=== PATIENT | female | born 1950 | race Caucasian/White ===

== ENCOUNTER 2018-10-24 10:13 | Outpatient (CLI) | payer MEDICARE ==
[~2018-10-24] VITALS: Ht 162.6 cm; Wt 56.8 kg
[~2018-10-24 10:13] MED LIST: ALDACTONE25 MG PO; EFFER-K 25 MEQ25 MEQ PO; ELIQUIS5 MG PO; HCTZ25 MG PO; HYDROCODON-ACE1 EAC7 PO; LANOXIN250 MCG PO; LASIX80 MG PO; MAG-OX 400 MG400 MG PO; MIDAMOR5 MG PO; NYSTATIN ORAL SU5 ML PO; PLAQUENIL200 MG PO; POTASSIUM20 MEQ/PKT PO; PRILOSEC20 MG PO; SODIUM BICARBO650 MG PO; VITAMIN B-1000 MCG/M IM; ZOFRAN8 MG PO
[2018-10-24 13:15] VITALS: BP 106/66; Ht 162.6 cm; Wt 56.8 kg
--- NOTE | 2018-10-24 14:10 | NUR ---
UNIT PRBC'S COMPLETED.
--- NOTE | 2018-10-24 14:35 | NUR ---
IV DC'D WITH CATHETER INTACT. WRITTEN AND VERBAL DC INST. GIVEN TO PT. VERALIZED UNDERSTANDING.
--- NOTE | 2018-10-24 14:40 | NUR ---
DC'D HOME VIA PRIVATE VEHICLE. STABLE AT TIME OF DC.
== END 2018-10-24 14:40 | disposition home or self-care (01) ==
LOC: D.OPS 10:13
PROVIDERS: ATTEND Family Medicine
DX: D64.9 Anemia, unspecified (principal)

== ENCOUNTER → 2019-05-29 12:38 | Outpatient (CLI) | payer MEDICARE ==
[2018-10-24 13:15] VITALS: BMI 21.5
--- NOTE | ~2019-05-29 | EC ---
PATIENT:MIGUEL CASH DATE OF SERVICE: 05/29/19 SEX: F MEDICAL RECORD: [id number] DATE OF : 54 LOCATION:[facility] AGE OF PATIENT: 68 ADMISSION DATE: 05/29/19 REFERRING PHYSICIAN: INTERPRETING PHYSICIAN: ETHEL BELL MD ECHOCARDIOGRAM REPORT ECHO CHARGES 4 ECHO COMPLETE Date: 05/29/19 CLINICAL DIAGNOSIS: HTN/HYPOTENSION, ASSESS EF AND VALVES HX OF MT/TR/PACEMAKER ECHOCARDIOGRAPHIC MEASUREMENTS (adult normal given) AC root (d.<3.7cm) 3.1 cm LV Septum d (<1.2 cm> 1.2 cm Valve Excursion 1.8 cm LV Septum (systole) 1.3 cm Left Atria (s.<4.0cm> 4.0 cm LVPW d(<1.2cm) 1.4 cm RV (d.<2.3cm) 4.7 cm LVPW (sytole) 1.5 cm LV diastole(<5.6CM) 4.2 cm MV E-F(>70mm/sec) cm LV systole 2.9 cm LVOT Diameter 2.1 cm MV exc.(>10mm) 1.4 cm Est.ejection fraction (50-75%) % DOPPLER: LVIT cm/sec A 22.0 cm/sec E 75.0 cm/sec LA cm/sec RVSP 46 mmHg LVOT 92 cm/sec AOP1/2T m/s Asc. Ao 126 cm/sec RVOT 65 cm/sec RA cm/sec PA 75 cm/sec AV Gradient Peak 6.31 mmHg AV Mean 2.93 mmHg AV Area 2.7 cm MV Gradient Peak 5.84 mmHg MV Mean 2.28 mmHg MV Area cm COMMENTS: Crop Duster Helper: 2 SHERYL PEÑA Chemist Biological: 3 Dr. Cantrell TAPE# PACS Pericardial Effusion N DATE OF SERVICE: Adequate 2D, color flow imaging, spectral Doppler, and M-Mode. Borderline LVH. LV internal dimensions are normal. Wall motion is normal. EF is greater than or equal to 55%. Aortic valve is tricuspid. No evidence of stenosis by Doppler interrogation. Left atrium is normal at 4.0 cm. Mitral valve shows no prolapse. Mild MR. Right-sided chamber is grossly normal. Gsxb-sq-sumrimbv TR. Incidental note is made of pacemaker lead in the RV apex. ECHOCARDIOGRAM REPORT [id number] MIGUEL CASH TRANSINT:[id number] Voice Confirmation ID: [id number] DOCUMENT ID: [id number] ETHEL BELL MD CC: [id number] DICTATION DATE: 05/31/19 1231 EXTRAS CASTING DIRECTOR: 06/01/19 0146 DEP CLI 05/29/19 [place] [id number] [place] [id number]
== END | disposition home or self-care (01) ==
LOC: D.HCCECHO 12:38
PROVIDERS: ATTEND Internal Medicine Interventional Cardiology
DX: I10 Essential (primary) hypertension (principal)

== ENCOUNTER 2019-06-06 05:51 | Inpatient (IN) | payer MEDICARE ==
[~2019-06-06] VITALS: Ht 162.6 cm; Wt 73.0 kg
[2019-06-06] VITALS (35 sets, daily range): BP systolic 75–116; BP diastolic 36–95; BMI 18.9
--- NOTE | ~2019-06-06 | HEMODYNAMI ---
PATIENT:MIGUEL CAHS MEDICAL RECORD: [id number] : 54 LOCATION:[facility] D.2312 LOCATED WITHIN [facility]# [id number] ADMISSION DATE: 06/06/19 Generatedon:06/09/201912:31 Patient name: MIGUEL CASH Patient #: [id number] SSN: [id number] : 1950 Date of study: Page: Of Hemodynamic Procedure Report Patient Data Patient Demographics First Name: MIGUEL Gender: Female Last Name: SHREYA : 1950 Middle Initial: M Age: 68 year(s) Patient #: [id number] Race: Unknown SSN: [id number] Additional ID: [id number] Contact details Address: [address] [place] [address] State: [place] City: [place] Zip code: [address] Past Medical History Allergies Allergen Reaction Date Comments Reported Other allergy 06/09/2019 N Admission Admission Data Admission Date: 06/06/2019 Admission Time: 7:49 Room #: D.2312 [facility] #: [id number] Lab Results Lab Result Date: 06/09/2019 Lab Result Time: 0:00 Biochemistry Name Units Result Min Max BUN mg/dl 47 --(----)-* 7 18 Creatinine mg/dl 2.6 --(----)-* 0.6 1.3 eGFR ml/min 19 *-(----)-- 90 120 NONAFRICAN CBC Name Units Result Min Max Hemoglobin g/dl 12.5 *-(----)-- 13.5 17.5 Procedure Procedure Types Cath Procedure Diagnostic Procedure [facility] Procedure Description Procedure Staff Name Function Rupesh Varma MD Performing Physician Carmen Merritt RT Monitor Anatoly Hogan RN Nurse Gill Yost RT Scrub Hemodynamics Rest Pre Cath Intra NCS Post Cath Procedure Log Time Note 12:04:03 Patient allergic to Other allergyPCN Signature Audit [place] Stage Time Signature Unsigned Intra-Procedure 06/09/2019 Carmen Merritt 12:31:54 PM RT(R) Signatures Performing Physician : Signature : Rupesh Varma MD Date : Time : Monitor : Carmen Merritt Signature : RT Date : Time : Nurse : Anatoly Hogna RN Signature : Date : Time : [place] [address] [place] [address]
--- NOTE | ~2019-06-06 | CN ---
PATIENT NAME:MIGUEL AHUMADA MEDICAL RECORD: [id number] : 54 LOCATION:D.M2 D.2107 ADMIT DATE: 06/06/19 ACCOUNT: [id number] CONSULTING PHYSICIAN: GEOVANY OHARA MD REFERRING PHYSICIAN: TANIA ROBLES MD DATE OF CONSULTATION: 06/06/2019 DIAGNOSES: 1. Non-Q-wave myocardial infarction. 2. Abnormal ECG. 3. Pancreatic cancer. 4. Shortness of breath, dyspnea on exertion. HISTORY OF PRESENT ILLNESS: Mrs. Ahumada presents to the ER with increasing shortness of breath, dyspnea on exertion that has been going on this week. She has had some chest pressure, but the shortness of breath has been her main symptom. The shortness of breath progressed today to the point of her being relatively somnolent, difficult to arouse. Her troponin is positive. She has T-wave inversions throughout the anterolateral leads on her EKG. She has no history of ischemic heart disease. They did an echocardiogram on her Sunday of this week for the shortness of breath. PHYSICAL EXAMINATION: CONSTITUTIONAL/GENERAL APPEARANCE: Well nourished, well developed, appears stated age. Level of distress, comfortable. EYES: Lids and conjunctivae noninjected. No discharge. No pallor. ENT: Lips within normal limit. No cyanosis. No pallor. NECK: Carotid arteries, bilateral normal upstroke. No bruits. No thrills. No jugular venous pressure or distention. CERVICAL LYMPH NODES: Nontender. Nonenlarged. THYROID: Not enlarged. No nodules. CARDIOVASCULAR: Precordial exam, nondisplaced. No heaves or pericardial thrills. Rate and rhythm, regular. Heart sounds, normal S1, normal S2. No S3, no gallop, no rub. Systolic murmur, not heard. Diastolic murmur, not heard. RESPIRATORY: Respiratory effort, unlabored. Normal curvature. No thoracic deformity. No chest wall tenderness. Percussion, resonant. Auscultation, clear. No wheezes, no rales, no rhonchi. ABDOMEN: Soft, nondistended, nontender. No abdominal pain, no vomiting and normal appetite. MUSCULOSKELETAL: No joint tenderness, normal gait, normal tone. SKIN: Warm and dry. OVERALL IMPRESSION: Non-Q-wave myocardial infarction, grossly abnormal ECG, most likely she does have hemodynamically significant coronary artery disease. We have talked to the about her status with the pancreatic cancer and at this point she is a FULL CODE and the pancreatic cancer is in its beginning stages. She is followed by an oncologist at [facility]. Clearly, the cardiac issues outweigh the pancreatic cancer. At this time, we will proceed with coronary angiography. TRANSINT:[id number] Voice Confirmation ID: [id number] DOCUMENT ID: [id number] CONSULT REPORT [id number] MIGUEL AHUMADA JEFFREY MD CC: [id number] DICTATION DATE: 06/06/19905 SPRING FLOOR SERVICE WORKER: 06/06/19 1117 ADM IN [facility] [address] [place] [address]
--- NOTE | ~2019-06-06 | EC ---
PATIENT:MIGUEL CASH DATE OF SERVICE: 06/06/19 SEX: F MEDICAL RECORD: [id number] DATE OF : 54 LOCATION:[place] [address] AGE OF PATIENT: 68 ADMISSION DATE: 06/06/19 REFERRING PHYSICIAN: INTERPRETING PHYSICIAN: GEOVANY VARMA MD ECHOCARDIOGRAM REPORT ECHO CHARGES 5 ECHO LIMITED Date: 06/06/19 CLINICAL DIAGNOSIS: CHF ECHOCARDIOGRAPHIC MEASUREMENTS (adult normal given) AC root (d.<3.7cm) 0 cm LV Septum d (<1.2 cm> 0 cm Valve Excursion 0 cm LV Septum (systole) 0 cm Left Atria (s.<4.0cm> 0 cm LVPW d(<1.2cm) 0 cm RV (d.<2.3cm) 0 cm LVPW (sytole) 0 cm LV diastole(<5.6CM) 0 cm MV E-F(>70mm/sec) 0 cm LV systole 0 cm LVOT Diameter 0 cm MV exc.(>10mm) 0 cm Est.ejection fraction (50-75%) % DOPPLER: LVIT cm/sec A 0 cm/sec E 0 cm/sec LA cm/sec RVSP 30.1 mmHg LVOT 0 cm/sec AOP1/2T m/s Asc. Ao 0 cm/sec RVOT 0 cm/sec RA 0 cm/sec PA 0 cm/sec AV Gradient Peak 0 mmHg AV Mean 0 mmHg AV Area 0 cm MV Gradient Peak 0 mmHg MV Mean 0 mmHg MV Area 0 cm COMMENTS: Central Service Tech: Marissa AMANDA ELSIE Applications Instructor: 1 Dr. Varma TAPE# PACS Pericardial Effusion N DATE OF SERVICE: PROCEDURE: Limited echocardiogram for ejection fraction. FINDINGS: 1. Left ventricular chamber size is within normal limits. Left ventricular systolic function is normal at 55%. 2. Left atrium, right atrium, and right ventricular chamber sizes are mildly dilated. 3. Valvular structures have normal structure and motion. ECHOCARDIOGRAM REPORT [id number] MIGUEL CASH 4. Doppler interrogation reveals moderate to severe tricuspid regurgitation, mild mitral regurgitation, no other valvular insufficiency or stenosis. Pulmonary systolic pressure estimated at 30 mmHg. 5. No evidence of pericardial effusion or left ventricular thrombus. TRANSINT:[id number] Voice Confirmation ID: [id number] DOCUMENT ID: [id number] GEOVANY VARMA MD CC: [id number] DICTATION DATE: 06/06/19 1614 HAND PLATE STACKER: 06/06/192226 ADM IN [facility] [address] [place] [id number]
--- NOTE | ~2019-06-06 | HEMODYNAMI ---
PATIENT:MIGUEL CASH MEDICAL RECORD: [id number] : 54 [id number] ADMISSION DATE: 06/06/19 Generatedon:06/16/20199:15 Patient name: MIGUEL CASH Patient #: [id number] SSN: [id number] : 1950 Date of study: 06/16/2019 Page: Of Hemodynamic Procedure Report Patient Data Patient Demographics Procedure consent was obtained First Name: MIGUEL Gender: Female Last Name: SHREYA : 1950 Middle Initial: M Age: 68 year(s) Patient #: [id number] Race: SSN: [id number] Additional ID: [id number] Contact details Address: [address] [place] [address] State: [place] City: [place] Zip code: [address] Past Medical History Allergies Allergen Reaction Date Comments Reported Other allergy 06/09/2019 N Admission Admission Data Admission Date: 06/06/2019 Admission Time: 7:49 Arrival Date: 06/06/2019 Arrival Time: 7:49 Admit Source: Emergency Insurance Payor: Medicare department [facility] #: [id number] Room #: D2130 Height (in.): 64 BSA: 1.78 (m2) Height (cm.): 162.56 BMI: 27.64 (kg/m2) Weight (lbs.): 161 Weight (kg.): 73.03 Procedure Procedure Types Cath Procedure Diagnostic Procedure LHC LH w/Coronaries Sedation Charges Moderate Sedation up to 15 minutes Procedure Description Procedure Date Procedure Date: 06/16/2019 Procedure Start Time: 9:02 Procedure End Time: 9:10 Procedure Staff Name Function Justice Oliver MD Performing Physician Gill Yost RT Monitor Nafisa Dodd RN Nurse Carmen Merritt RT Scrub Procedure Data Cath Procedure Fluoroscopy Diagnostic fluoroscopy Total fluoroscopy Time: 1.1 time: 1.1 min min Diagnostic fluoroscopy Total fluoroscopy dose: 374 dose: 374 mGy mGy Contrast Material Contrast Material Type Amount (ml) Isovue 300 103 Entry Location Entry Primary Successful Side Size Upsize Upsize Entry Closure Succes sful Closure Location (Fr) 1 (Fr) 2 (Fr) Remarks Device Remarks Femoral Right 5 Fr Exoseal artery Estimated blood loss: 5 ml Diagnostic catheters Device Type Used For End Catheter Placement MULTIPACK JL 4.0 5Fr Left Coronary catheter Angiography MULTIPACK 3DRC 5Fr Right Coronary catheter Angiography MULTIPACK Pigtail 5 Fr LV Angiography catheter Procedure Complications No complications Procedure Medications Medication Administration Route Dosage Oxygen NC 3 l/min Heparin Flush Bag added to field 2 bags (1000units/500ml NS) Lidocaine 2% added to field 20 0.9% NaCl I.V. 50 ml/hr Versed I.V. 1 mg Fentanyl I.V. 50 mcg Versed I.V. 1 mg Fentanyl I.V. 50 mcg Versed I.V. 0.5 mg Hemodynamics Rest BSA: 1.78 (m2) HGB: 12.5 (g/dl) O2 Consumption: Estimated: 161.13 (ml/min) O2 Co nsumption indexed: Estimated:90.52 (ml/min/m) Heart Rate: 63 (bpm) Pressure Samples Time Site Value (mmHg) Purpose Heart Use Rate(bpm) 9:07 LV 131/26,31 Snapshot 65 Gradients Valve Time Site Site Mean SEP/DFP Peak To Heart Use 1 2 (mmHg) (sec/min) Peak Rate (mmHg) (bpm) Aortic 9:07 LV AO 63 Snapshots Pre Cath Intra NCS Post Cath Vital Signs Time Heart Resp SPO2 etCO2 NIBP (mmHg) Rhythm Pain Sedation Rate (ipm) (%) (mmHg) Status Level (bpm) 8:34:38 63 22 97 29.4 154/91(116) NSR 0 (11) 10(A) , No pain 8:38:48 60 19 100 23.4 155/97(113) NSR 0 (11) 10(A) , No pain 8:43:02 60 16 100 27.9 151/83(105) NSR 0 (11) 10(A) , No pain 8:47:16 60 13 98 30.2 134/81(104) NSR 0 (11) 10(A) , No pain 8:51:26 60 12 97 30.2 122/76(95) NSR 0 (11) 10(A) , No pain 8:55:30 60 13 98 30.2 134/78(102) NSR 0 (11) 10(A) , No pain 8:59:37 61 13 98 31.7 125/81(101) NSR 0 (11) 9(A) , No pain 9:03:43 60 13 99 30.9 134/76(118) NSR 0 (11) 9(A) , No pain 9:07:51 60 14 98 31 129/78(102) NSR 0 (11) 9(A) , No pain 9:11:10 60 12 97 21.9 132/75(97) NSR 0 (11) 10(A) , No pain Medications Time Medication Route Dose Verified Delivered Reason Notes Effe ctiveness by by 8:36:40 Oxygen NC 3 Nafisa Nafisa for low 02 l/min Ju Ju sats PHILIP RN 8:36:48 Heparin Flush added 2 Nafisa Nafisa used for Bag to bags Ju Ju procedure (1000units/500ml field RN RN NS) 8:36:58 Lidocaine 2% added 20ml Nafisa Nafisa for local to vial Ju Ju anesthetic field RN RN 8:37:12 0.9% NaCl I.V. 50 Nafisa Nafisa used for ml/hr Ju Ju tooth cutter contact wheel RN 8:59:13 Versed I.V. 1 mg Justice Nafisa for Benito Ju sedation MD PALACIOS 8:59:24 Fentanyl I.V. 50 Justice Nafias for mcg Benito Ju sedation RN 9:03:59 Versed I.V. 1 mg Justice Nafisa for Benito Ju sedation RN 9:04:03 Fentanyl I.V. 50 Justice Nafisa for mcg Benito Ju sedation RN 9:07:30 Versed I.V. 0.5 Justice Nafisa for mg Benito Ju sedation truck spotter Log Time Note 8:09:26 Arrival Date: 06/06/2019 7:49:00 AM 8:09:44 Admit Source: Emergency department 8:09:48 Insurance Payor : Medicare 8:09:59 Patient Height : 64 inches 8:10:02 Patient Weight : 161 lbs 8:11:08 Diagnostic Cath Status : Urgent 8:12:08 ACC Patient presents with Unstable Angina CCS Anginal Class 4--Inability to carry out any physical activity w/o angina. Angina may occur at rest. 8:12:12 ACCPatient has been prescribed/administered the following anti-anginal medication within the last 2 weeks: None 8:12:16 Procedure Status Urgent Heart Cath (IP). 8:12:21 Taylor MICHELLE(R) sent for patient. Start room use. 8:12:22 Time tracking: Regular hours (M-F 7:00 - 5:00) 8:12:26 Plan of Care:Hemodynamics will remain stable., Cardiac rhythm will remain stable., Comfort level will be maintained., Respiratory function will remain adequate., Patient/ family verbilizes understanding of procedure., Procedure tolerated without complication., Recovers from procedure without complications.. 8:27:37 Patient received from Med II to CCL 2 Alert and oriented. Tansferred to table in Supine position. 8:31:41 Signed procedure consent form obtained from patient. 8:31:43 Warm blankets applied, and marli hugger turned on for patient comfort. 8:31:44 Correct patient and procedure confirmed by team. 8:31:46 ECG and BP/O2 sat monitors applied to patient. 8:33:32 Vital chart was started 8:33:42 H&P Date Dictated: 06/06/2019 Within 30 days and on chart.. 8:33:43 Pre-procedure instructions explained to patient. 8:33:44 Pre-op teaching completed and patient verbalized understanding. 8:33:46 Family unavailable. 8:33:48 Patient NPO since Midnight. 8:33:50 Is the patient allergic to Iodine/contrast media? No. 8:33:52 Was the patient premedicated? N/A 8:34:20 Patient diabetic? No. 8:34:22 If diabetic: On Metformin? N/A 8:34:29 Is patient on blood thinner?Yes 8:34:33 ACC The patient was administered the following blood thiners within the last 24 hours: Eliquis 8:34:36 Patient not . Patient is over age 55. 8:34:36 ----Pre-sedation anethsthesia assessment.---- 8:34:43 Previous problem with sedation/anesthesia? No ? 8:34:44 Snore? Yes 8:34:46 Sleep apnea? No 8:34:47 Deviated septum? No 8:34:48 Opens mouth fully? Yes 8:34:49 Sticks out tongue? Yes 8:34:51 Airway obstruction? No ? 8:34:54 Dentures? No ? 8:34:58 Full Disclosure recording started 8:35:03 Rhythm: sinus rhythm 8:35:05 Baseline sample Acquired. 8:35:10 Alarms reviewed by R. N. 8:35:10 Sharps counted by scrub and verified by R.N. 8:35:17 Stress Test: no; N/A ? 8:35:21 Right groin area was prepped with chlora-prep and draped in sterile fashion 8:35:24 Lab results completed and on chart. 8:36:15 IV patent on arrival in left antecubital, Rt subclavian with 0.9% NaCl at O. 8:36:27 Pre procedure: right dorsailis pedis pulse 1+ Palpable, but thready & weak; easily obliterated 8:36:40 Oxygen 3 l/min NC was administered by Nafisa Dodd RN; for low 02 sats; Verbal order read back and verified. 8:36:48 Heparin Flush Bag (1000units/500ml NS) 2 bags added to field was administered by Nafisa Dodd RN; used for procedure; Verbal order read back and verified. 8:36:58 Lidocaine 2% 20ml vial added to field was administered by Nafisa Dodd RN; for local anesthetic; Verbal order read back and verified. 8:37:12 0.9% NaCl 50 ml/hr I.V. was administered by Nafisa Dodd RN; used for procedure; Verbal order read back and verified. 8:39:13 Risk of Mortality: 0.5 8:39:16 Risk of blood transfusion: 2.4 8:39:19 Risk of BRAD: 1.8 8:39:23 Use device set Femoral Dx 8:46:07 3a) 45-59 Moderately reduced kidney function. 8:46:12 Maximum allowable contrast dose (3.7 X eGFR X 0.75)103 ml. 8:46:18 Sedation plan: IV Moderate Sedation Medication:Versed, Fentanyl 8:50:55 Physician paged 8:57:46 Physician arrived 8:57:46 --------ALL STOP TIME OUT------ 8:57:46 Final Timeout: patient, procedure, and site verified with staff and physician. All members of the team are in agreement. 8:57:49 Right groin site verified by team. 8:57:53 Fire Safety Assessment: A--An alcohol-based skin anteseptic being used preoperatively., C--Open oxygen or nitrous oxide is being used., D--An ESU, laser, or fiber-optic light is being used. 8:57:58 Physical assessment completed. ASA score P 2 - A patient with mild systemic disease as per Justice Oliver MD. 8:59:13 Versed 1 mg I.V. was administered by Nafisa Dodd RN; for sedation; Verbal order read back and verified. 8:59:24 Fentanyl 50 mcg I.V. was administered by Nafisa Dodd RN; for sedation; Verbal order read back and verified. 9:01:05 Procedure started. 9:02:19 Local anesthetic to right femoral artery with Lidocaine 2% by Justice Oliver MD.INITIAL ACCESS ONLY 9:02:31 A 5 Fr sheath was inserted into the Right Femoral artery 9:03:58 ACIST Syringe (32766) opened to sterile field. 9:03:59 Versed 1 mg I.V. was administered by Nafisa Dodd RN; for sedation; Verbal order read back and verified. 9:03:59 Bag Decanter (2002S) opened to sterile field. 9:03:59 Medline Cath Pack ([id number]) opened to sterile field. 9:04:00 ACIST Hand Control (37492) opened to sterile field. 9:04:01 ACIST Manifold (07817) opened to sterile field. 9:04:01 DIAGNOSTIC Multipack 5Fr catheter set ([id number]) opened to sterile field. 9:04:02 Tegaderm 4 x 4 (1626W) opened to sterile field. 9:04:03 Fentanyl 50 mcg I.V. was administered by Nafisa Dodd RN; for sedation; Verbal order read back and verified. 9:04:03 SHEATH 5FR [place] (OUV254) opened to sterile field. 9:04:03 EMERALD Guide Wire (152-901) opened to sterile field. 9:04:10 A MULTIPACK JL 4.0 5Fr catheter was advanced over the wire and used for Left Coronary Angiography. 9:04:29 LCA angiography performed. 9:04:35 Injector settings: Ml/sec: 3, Volume: 6, 9:05:15 Catheter removed. 9:05:21 A MULTIPACK 3DRC 5Fr catheter was advanced over the wire and used for Right Coronary Angiography. 9:05:54 RCA angiography performed. 9:05:59 Injector settings: Ml/sec: 3, Volume: 6, 9:06:01 Catheter removed. 9:06:26 A MULTIPACK Pigtail 5 Fr catheter was advanced over the wire and used for LV Angiography. 9:07:13 LV hemodynamics recorded. 9:07:15 LV gram done using GUNDERSON 9:07:20 Injector settings: Ml/sec: 5, Volume: 15, 9:07:30 Versed 0.5 mg I.V. was administered by Nafisa Dodd RN; for sedation; Verbal order read back and verified. 9:07:39 EF : 40 % 9:07:47 Catheter removed. 9:07:58 EXOSEAL 5Fr (EX500) opened to sterile field. 9:08:11 Sheath removed intact; hemostasis achieved with Exoseal to the Right Femoral artery. 9:08:18 Procedure ended.(Physican Out) 9:08:57 Fluoroscopy time 01.10 minutes. 9:09:01 Fluoroscopy dose: 374 mGy 9:09:01 Flurop Dose total: 374 9:09:06 Dose Area Product 67404 mGy/cm. 9:09:10 Contrast amount:Isovue 300 103ml. 9:09:12 Maximum allowable dose exceeded? No. 9:09:13 Sharps counted by scrub and verified by R.N. 9:09:15 Insertion/operative site no bleeding no hematoma. 9:09:17 Post-op/insertion site Right Femoral artery dressed using a 4 x 4 and Tegaderm. 9:09:22 Post procedure rhythm: unchanged. 9:09:25 Estimated blood loss: 5 ml 9:09:26 Post procedure instruction explained to patient.Patient verbalizes understanding. 9::27 Patient needs reinforcement of post procedure teaching. 9:09:43 Procedure type changed to Cath procedure, Diagnostic procedure, LHC, [facility] w/Coronaries, Sedation Charges, Moderate Sedation up to 15 minutes 9:09:44 Procedure and supply charges have been captured, reviewed, submitted and are correct. 9:09:48 Procedure Complication : No complications 9:09:51 Vital chart was stopped 9:09:53 [facility] Findings: mild to moderate CAD (<70%) 9:10:01 Operative report dictated upon procedure completion. 9:10:01 See physician's report for complete and final results. 9:10:07 Report given to Med II. 9:10:10 Patient transfered to Med II with Stretcher. 9:10:13 Procedure ended. 9:10:13 Full Disclosure recording stopped 9:10:23 End room use (Document Last) 9:13:29 End room use (Document Last) 9:14:40 End room use (Document Last) Device Usage Item Name Manufacture Quantity Catalog Hospital Part Current Minimal L ot# / Number Charge Number Stock Stock Serial# Code ACIST Acist 1 45924 [id number] 876777 464052 20 Syringe Medical (88021) Systems Inc Bag Microtek 1 2001S 833887 59966 248418 5 Decanter Medical Inc. () Medline Medline 1 [id number] 669132 57728 831260 5 Cath Pack ([id number]) ACIST Hand Acist 1 07771 279927 800611 839308 5 Control Medical (36026) Systems Inc ACIST Acist 1 68468 683139 967682 851430 5 Manifold Medical (92603) Systems Inc DIAGNOSTIC Cardinal 1 [id number] 694544 31048 634869 30 Multipack Health 5Fr catheter set (QK5990) Tegaderm 4 3M 1 1626W 251153 356682 504082 5 x 4 (1626W) SHEATH 5FR Terumo 1 [id number] 988650 396914 817046 5 [place] (ZDR924) EMERALD Cardinal 1 502-455 333871 532061 908781 5 Guide Wire [facility] (502455) MULTIPACK Cardinal 1 354428 5 JL 4.0 5Fr Health catheter MULTIPACK Cardinal 1 514319 5 3DRC 5Fr Health catheter MULTIPACK Cardinal 1 059860 5 Pigtail 5 Health Fr catheter EXOSEAL 5Fr Cardinal 1 EX500 389083 894751 963570 10 (EX500) Health Signature Audit [place] Stage Time Signature Unsigned Intra-Procedure 06/16/2019 Gill Yost 9:13:29 AM RT(R) Intra-Procedure 06/16/2019 Nafisa 9:14:40 AM Ju RN Intra-Procedure 06/16/2019 Justice Avery 9:15:11 AM Nav WALLS Signatures Performing Physician : Signature : Justice Oliver MD Date : Time : Monitor : Gill Yost RT Signature : Date : Time : Nurse : Nafisa Signature : Ju RN Date : Time : [address] [address]
--- NOTE | 2019-06-06 06:38 | NUR ---
URINE SPECIMEN SENT WITH FUND ACCOUNTANT AT BEDSIDE.
[2019-06-06 06:42] LABS: BASOPHILS 0.2 % (0-2); EOSINOPHILS 0 % (0-7); HEMATOCRIT 39.3 % (36.0-48.0); HEMOGLOBIN 12.5 g/dL (12-16); IMMATURE GRANULOCYTES 0.3 % (0-5); LYMPHOCYTES 20.5 % (15-50); MCH 30.8 pg (26.0-34.0); MCHC 31.8 g/dL (31.0-37.0); MCV 96.8 fL (80.0-100.0); MONOCYTES 7.3 % (2-11); NEUTROPHILS 71.7 % (40-80); RBC 4.06 10x6/uL (4.00-5.40); WBC 6.3 10x3/uL (4.8-10.8)
[2019-06-06 07:02] LABS: ALBUMIN 3.9 g/dL (3.4-5.0); ALKALINE PHOSPHATASE 123 U/L (30-120); ALT (SGPT) 46 U/L (10-68); BILIRUBIN - TOTAL 0.91 mg/dL (0.2-1.3); CALC OSMOLALITY 275 mosm/kg (275-300); CARBON DIOXIDE 27.5 mmol/L (21.0-32.0); CHLORIDE - SERUM 93 mmol/L (98-107); CKMB 33.3 U/L (0.0-3.6); CREATININE - SERUM 2.8 mg/dL (0.6-1.3); GLUCOSE 84 mg/dL (74-106); PROTEIN - SERUM 7.6 g/dL (6.4-8.2); SODIUM 133 mmol/L (136-145); UREA NITROGEN 44 mg/dL (7-18); eGFR NON AFRICAN AMERICAN 18 mL/min (90-120)
--- NOTE | 2019-06-06 07:10 | NUR ---
ASSUMED CARE OF PT AT THIS TIME.
[2019-06-06 07:21] LABS: PLATELET COUNT 186 10x3/uL (130-400)
[2019-06-06 07:28] LABS: CREATINE KINASE 2058 UL (21-215)
[2019-06-06 07:31] LABS: BILIRUBIN NEGATIVE (NEGATIVE); GLUCOSE NEGATIVE (NEGATIVE); KETONE NEGATIVE (NEGATIVE); NITRITE NEGATIVE (NEGATIVE); UROBILINOGEN NORMAL (NORMAL)
[2019-06-06 07:31] LABS: POTASSIUM - SERUM 2.6 mmol/L (3.5-5.1); TROPONIN-I 0.555 ng/mL (0.000-0.060)
[2019-06-06 07:32] LABS: EPITHELIAL CELLS 0-5 /hpf (0-5); RED CELLS - URINE NONE SEEN /hpf (0-5); WHITE CELLS - URINE 0-5 /hpf (NEGATIVE)
[2019-06-06 07:33] LABS: BACTERIA FEW /hpf (NEGATIVE)
[2019-06-06 07:43] LABS: PROTIME 13.2 SECONDS (11.6-15.0)
[2019-06-06 10:11] LABS: CKMB 31.3 U/L (0.0-3.6)
[2019-06-06 10:12] LABS: CREATINE KINASE 2274 UL (21-215); TROPONIN-I 0.459 ng/mL (0.000-0.060)
--- NOTE | 2019-06-06 14:00 | NUR ---
PAGED FOR HYPOTENSION. NEW ORDERS RECIEVED. WILL CONTINUE TO MONITOR PT
[2019-06-06 16:10] LABS: CKMB 29.3 U/L (0.0-3.6); CREATINE KINASE 2297 UL (21-215)
[2019-06-06 16:11] LABS: TROPONIN-I 0.271 ng/mL (0.000-0.060)
--- NOTE | 2019-06-06 20:31 | NUR ---
PT CALLED, PASSWORD PROVIDED AND UPDATE GIVEN. DR MCCLOUD ON UNIT TO SEE PT.
[2019-06-06 21:09] LABS: CALC OSMOLALITY 289 mosm/kg (275-300); CALCIUM 7.2 mg/dL (8.5-10.1); CARBON DIOXIDE 19.5 mmol/L (21.0-32.0); CHLORIDE - SERUM 101 mmol/L (98-107); CREATINE KINASE 2022 UL (21-215); CREATININE - SERUM 2.4 mg/dL (0.6-1.3); GLUCOSE 167 mg/dL (74-106); MAGNESIUM - SERUM 2.1 mg/dL (1.8-2.4); PHOSPHOROUS 6.7 mg/dL (2.5-4.9); POTASSIUM - SERUM 3.7 mmol/L (3.5-5.1); SODIUM 137 mmol/L (136-145); UREA NITROGEN 45 mg/dL (7-18); eGFR NON AFRICAN AMERICAN 21 mL/min (90-120)
[2019-06-06 21:10] LABS: CKMB 24.7 U/L (0.0-3.6)
[2019-06-07] VITALS (95 sets, daily range): BP systolic 84–135; BP diastolic 40–75; Ht 162.6 cm; Wt 73.0 kg
--- NOTE | 2019-06-07 00:32 | NUR ---
PT CALLED, PASSWORD PROVIDED, UPDATE GIVEN AND ALL QUESTIONS ANSWERED.
[2019-06-07 05:12] LABS: BASOPHILS 0 % (0-2); EOSINOPHILS 0 % (0-7); HEMATOCRIT 37.8 % (36.0-48.0); HEMOGLOBIN 11.7 g/dL (12-16); IMMATURE GRANULOCYTES 0.4 % (0-5); LYMPHOCYTES 6.8 % (15-50); MCH 30.5 pg (26.0-34.0); MCV 98.7 fL (80.0-100.0); MEAN PLATELET VOLUME 10.1 fL (7.4-10.4); MONOCYTES 3.9 % (2-11); NEUTROPHILS 88.9 % (40-80); PLATELET COUNT 214 10x3/uL (130-400); RBC 3.83 10x6/uL (4.00-5.40); RDW 15.3 % (11.5-14.5)
[2019-06-07 05:16] LABS: WBC 8.9 10x3/uL (4.8-10.8)
[2019-06-07 05:40] LABS: ANION GAP 23.4 mmol/L (8-16); BILIRUBIN - TOTAL 0.77 mg/dL (0.2-1.3); CARBON DIOXIDE 19.4 mmol/L (21.0-32.0); CREATININE - SERUM 2.6 mg/dL (0.6-1.3); POTASSIUM - SERUM 3.8 mmol/L (3.5-5.1); VANCOMYCIN - RANDOM 12.8 ug/mL (10.0-20.0)
[2019-06-07 05:48] LABS: CALCIUM 6.9 mg/dL (8.5-10.1)
--- NOTE | 2019-06-07 13:44 | NUR ---
0700 REPORT RECIEVED AND CARE ASSUMED OF PATIENT.. SEE FLOW SHEET FOR FINDINGS.. 0800 MHUSBAND AT BEDSIDE UPDATE IS GIVEN.. 1015 DR WHEELER IN TO SEE PATIENT.. ABGS DRAWN.. ORDERS RECIEVED.. 1045 AMP SOD BICARB GIVEN. AND DRIP HUNG PER ORDER AT 100CC/HR..INTO LEFT MIDLINE IV.. 1115 RESP TX IN PROGRESS.. 1200 AT THE BEDSIDE.. UPDPATE IS GIVEN.. 1215 LEVOPHED RATE DECREASED.. BP 112/58 1220 DRESSING CHANGE TO INFUSAPORT DONE 1225 FAMILY AT BEDSIDE.. UPDATE IS GIVEN.. 1330 ORAL CARE DONE ... LEVOPHED DECREASED TO 8 BP 121/56
--- NOTE | 2019-06-07 17:22 | NUR ---
1200 FAMILY IN TO SEE PT.. 1400 STATES THAT SHE NEEDS TO GET OOB AND GO TO BSC.. BEDPAN OFFERED PT REFUSED.. 1430 COTNINUE TO DECREASE LEVOPHED 1530 COMPLETE CHG BATH GIVEN AND LINEN CHANGE DONE.. PT HELPED TURN SELF 1600 FAMILY IN TO SEE PT.. PT CONVERSING [address] WHEELER IN TO SEE PT UPDATE GIVEN AND ORDERS RECIEVED.. 1730 FAMILY GONE FROM BEDSIDE..
--- NOTE | 2019-06-07 18:46 | NUR ---
1820 ORAL CARE GIVEN.. PT IS APPROPRIATE IN RESPONSES.. MEDS GIVEN..
--- NOTE | 2019-06-07 19:30 | NUR ---
REPORT REC'D AND CARE ASSUMED, REC'D PT ON BIPAP @ 40%, PT AWAKENS EASILY, ORIENTED TO PERSON, PLACE, AND TIME. RIGHT UPPER CHEST INFUSAPORT WITH D5W WITH 3 AMPS SODIUM BICARB @ 100CC/HR AND LEVOPHED @ 5MCG/MIN OR 9.4CC/HR, PT MAEE, BRUISES NOTED TO RIGHT ARM, PP WEAKLY PALPABLE, PT DENIES PAIN OR NEEDS, BED IN LOW POSITION, CALL LIGHT IN REACH.
--- NOTE | 2019-06-07 21:00 | NUR ---
PT'S CALLED FOR UPDATE, UPDATE PROVIDED AFTER PASSWORD VERIFIED, PT RESTING ON BIPAP EYES CLOSED, BP STABLE, WILL CONT TO MONITOR FOR CHANGES.
--- NOTE | 2019-06-07 22:45 | NUR ---
PT'S BP 118/65, WILL ATTEMPT TO WEAN LEVOPHED, PT RESTING EYES CLOSED, RESP EVEN AND UNLABORED, VISIBLE TO NURSES STATION.
[2019-06-08] VITALS (35 sets, daily range): BP systolic 90–134; BP diastolic 31–68
--- NOTE | 2019-06-08 | NUR ---
CONTINUING TO WEAN LEVOPHED, PT RESTING IN BED ON BIPAP, EYES CLOSED, RESP EVEN AND UNLABORED, WILL CONT TO MONITOR FOR CHANGES.
--- NOTE | 2019-06-08 03:00 | NUR ---
REASSESSMENT COMPLETED, PT REMAINS CONFUSED, ORIENTED TO PERSON ONLY, DENIES PAIN, VSS.
--- NOTE | 2019-06-08 05:00 | NUR ---
[facility]
[2019-06-08 05:44] LABS: BASOPHILS 0 % (0-2); EOSINOPHILS 0 % (0-7); HEMOGLOBIN 10.6 g/dL (12-16); IMMATURE GRANULOCYTES 0.5 % (0-5); LYMPHOCYTES 3.7 % (15-50); MCH 30.5 pg (26.0-34.0); MCHC 32.1 g/dL (31.0-37.0); MEAN PLATELET VOLUME 9.5 fL (7.4-10.4); NEUTROPHILS 90.8 % (40-80); RBC 3.48 10x6/uL (4.00-5.40); RDW 15.3 % (11.5-14.5)
[2019-06-08 05:54] LABS: MCV 94.8 fL (80.0-100.0); PLATELET COUNT 171 10x3/uL (130-400); WBC 6.4 10x3/uL (4.8-10.8)
[2019-06-08 06:04] LABS: ALBUMIN 2.8 g/dL (3.4-5.0); BILIRUBIN - TOTAL 0.62 mg/dL (0.2-1.3); CREATININE - SERUM 2.8 mg/dL (0.6-1.3); MAGNESIUM - SERUM 2.2 mg/dL (1.8-2.4); PROTEIN - SERUM 5.8 g/dL (6.4-8.2); VANCOMYCIN - RANDOM 21.7 ug/mL (10.0-20.0)
[2019-06-08 06:11] LABS: ANION GAP 14.9 mmol/L (8-16); CARBON DIOXIDE 29.2 mmol/L (21.0-32.0); POTASSIUM - SERUM 3.1 mmol/L (3.5-5.1)
[2019-06-08 06:12] LABS: CALCIUM 7.1 mg/dL (8.5-10.1)
--- NOTE | 2019-06-08 13:21 | NUR ---
1300 PT RECIEVED IN THE ICU POST RR FROM FLOOR.. PT ARRIVED IN UNIT ON BIPAP O2 40%.. PT IS LETHARGIC IN HER RESPONSES NODDING YES AND NO .. RESPIRATIONS ARE 33 AT THIS TIME... HEART RATE IS [address] SEGMENT ON MONITOR.. O2 SAT IS 95%.. THERE IS AN INFUSAPORT IN THE LEFT CHEST SALINE LOCKED.. NO APPARENT INJURY SITES FROM FALL PRECIPITATING THE RR.. SKIN IS WITH OUT BREAKDOWN THERE IS AN OLD LUMBAR INCISION SCAR .. 1325 LAB IN AND BLOOD DRAWN FROM INFUSAPORT BY NURSE ..
--- NOTE | 2019-06-08 16:04 | NUR ---
0700 REPORT RECIEVED AND CARE ASSUMED OF PATIENT.. SEE FLOW SHEET FOR ASSEMENT FINDINGS..PT REMAINS ON BIPAP O2 AT 40% LETHARGIC 0800 WITHOUT VISITOR AT THIS TIME... CALLED AND UPDATE IS GIVEN.. 0850 DR MCCLOUD IN TO SEE PT UPDATE IS GIVEN [address] MCCLOUD .. D5W IV FLUID WITH BICARB DCd AT THIS TIME AND PLASMALYTE HUNG AT 100CC/HR.. 1030 PT REMAINS WITHOUT CHANGES ON BIPAP 1130 DR OHARA IN TO SEE PT UOPDATE IS GIVEN NO NEW ORDERS AT THIS TIME.. DR OHARA STATED HE PLANS TO TAKE PATIENT TO THE INSERTING MACHINE OPERATOR TOMORROW.. 1145 DR WHEELER IN TO SEE PT AND UPDATE IS GIVEN.. BIPAP IS REMOVED AND 5 LNC PLACED ON PATIENT.. PT ABLE TO VERBALLY COMMUNICATE WITHOUT DIFFICULTY.. 1200 FAMILY IN TO SEE PT.. 1400 FAMILY GONE FROM BEDSIDE.. DR ARGUETA HERE UPDATE GIVEN [address] SCAN VIA BED ON 6 L NC [address] SCAN .. TOLERATED WELL
--- NOTE | 2019-06-08 16:50 | NUR ---
1630 PT BACK ON BIPAP 1640 PT C/O NAUSEA BIPAP REMOVED AND EMSIS BAG GIVEN.. ZOFRAN GIVEN IV.. 1700 FAMILY AT BEDSIDE..
--- NOTE | 2019-06-08 18:24 | NUR ---
1730 DR WHEELER IN UNIT UPDATE GIVEN .. ORDERS RECIEVED.. 1800 FAMILY GONE PT RESTING COMFORTABLY WITH EYES CLOSED.. WIHTOUT NAUSEA.. 1820 MEDS GIVEN..
--- NOTE | 2019-06-08 19:45 | NUR ---
BEDSIDE SHIFT REPORTING COMPLETED. INTRODUCED MYSELF TO PT PRIMARY RN FOR TODAYS SHIFT. PT IS RESTING QUIETLY IN BED AND DENIES ANY CURRENT PAIN OR NEEDS AT THIS TIME. CL IN REACH, BED IN LOWEST, SIDE RAILS X2. WILL CTM.
--- NOTE | 2019-06-08 21:55 | NUR ---
PAGED LAB PTS 1810 ORDER HAS STILL NOT BEEN DRAWN. THEY ARE NOW HERE TO DRAW. WILL CTM.
[2019-06-08 22:07] LABS: ANION GAP 9.9 mmol/L (8-16); CALCIUM 7.2 mg/dL (8.5-10.1); CARBON DIOXIDE 34.6 mmol/L (21.0-32.0); CREATININE - SERUM 2.9 mg/dL (0.6-1.3); POTASSIUM - SERUM 3.5 mmol/L (3.5-5.1)
--- NOTE | 2019-06-08 22:20 | NUR ---
PT BACK ON BIPAP AND NOT NAUSEATED. WILL STAY ON ORDERED, HOPEFULLY TOLERATE THROUGHOUT THE NIGHT.
--- NOTE | 2019-06-08 22:29 | NUR ---
PT KEEPS TAKING HER BIPAP OFF. PT STATES SHE IS NAUSEATED NOW. I PROVIDED PT WITH PRN MJ AND TEACHING PROVIDED ON IMPORTANCE OF BIPAP. WILL CTM. BIPAP BACK IN PLACE.
--- NOTE | 2019-06-08 23:13 | NUR ---
PT CONTINUES TO PULL AT HER BIPAP AND TAKE IT OFF. PT STATES "IM COLD I WANT IT OFF" I EXPLAINED SHE HAS TO KEEP IT ON. PROVIDED PT WITH WARM BLANKET AND WILL CTM.
[2019-06-09] VITALS (24 sets, daily range): BP systolic 120–139; BP diastolic 61–74
--- NOTE | 2019-06-09 00:36 | NUR ---
PT REMOVED HER BIPAP AND WILL ABSOLUTELY NOT ALLOW ME TO PUT BACK ON HER. I TRIED TO PROVIDE TEACHING BUT SHE STATES "ID RATHER THAN WEAR THAT, IT MAKES ME SICK, I JUST CANT DO IT, I CANT" PT BARELY AGREES TO WEAR HER NC SO I DISCUSSED WITH RESPIRATORY AND WILL LEAVE HER ON NC AND CTM CLOSELY.
--- NOTE | 2019-06-09 03:12 | NUR ---
PT IS NOW WEARING BIPAP BUT IS CONTINUOUSLY PULLING AT IT AND TRYING TO TAKE IT OFF. PT IS NOW IGNORING ME WHEN I ASK HER WHY SHE DOES IT OR TO PLEASE LEAVE IT ON. HOWEVER SHES ALLOWING ME TO PUT IT ON. WILL CONTINUE TO REORIENT AND KEEP IT ON. NO CURRENT NEEDS.
--- NOTE | 2019-06-09 04:23 | NUR ---
NO SPUTUM COLLECTED PT WAS NOT ABLE TO COUGH ANYTHING UP ON MY SHIFT. BLOOD DRAWN COMPLETED ORDERED AND PULLED VIA R.CHEST INFUSAPORT. PT SUCCESSFULLY WORE HER BIPAP FOR MAYBE ABOUT 3HRS TOTAL TONIGHT. ABGS ARE DONE AND SHE WANTS IT OFF SO I REMOVED IT AND SHE HAS HER NC @5L IN PLACE. EMPTIED GARCIA CATHETER OF 400CC CONCENTRATED URINE. PT NOW RESTING QUIETLY WITH LIGHTS BACK OUT. NO CURRENT NEEDS. WILL CTM.
[2019-06-09 04:49] LABS: BASOPHILS 0 % (0-2); EOSINOPHILS 0 % (0-7); HEMATOCRIT 33.9 % (36.0-48.0); HEMOGLOBIN 10.7 g/dL (12-16); IMMATURE GRANULOCYTES 0.4 % (0-5); LYMPHOCYTES 4.2 % (15-50); MCH 29.8 pg (26.0-34.0); MCHC 31.6 g/dL (31.0-37.0); MCV 94.4 fL (80.0-100.0); MEAN PLATELET VOLUME 9.7 fL (7.4-10.4); MONOCYTES 6.5 % (2-11); NEUTROPHILS 88.9 % (40-80); PLATELET COUNT 148 10x3/uL (130-400); RBC 3.59 10x6/uL (4.00-5.40); RDW 15.3 % (11.5-14.5); WBC 5.5 10x3/uL (4.8-10.8)
--- NOTE | 2019-06-09 05:00 | NUR ---
PT C/O NAUSEA REQUESTED AND PROVIDED WITH PRN ZOFRAN. POTASSIUM LEVEL SLIGHTLY LOW, PROVIDED PT WITH REPLACEMENT PER ELECTROLYTE PROTOCOL. PT SITTING UP IN BED RESTING QUIETLY WITH NC @5L IN PLACE. NO IMMEDIATE NEEDS NOTED AT THIS TIME. WILL CTM.
--- NOTE | 2019-06-09 06:42 | NUR ---
PT TOOK HER NC OFF AND WAS HANGING HER FEET OFF EDGE OF BED. REORIENTED PT BACK IN BED AND NC BACK IN PLACE. PT STATES SHE WANTED TO GET UP AND VERBALIZED UNDERSTANDING TO STAY IN BED FOR NOW. LABS STILL PENDING TO SEE ABOUT CRE LEVEL FOR PLANNED HEART CATH TODAY. CONSENTS NOT SIGNED, WAITING ON . NO CURRENT NEEDS WILL CTM.
[2019-06-09 08:11] LABS: ALBUMIN 2.8 g/dL (3.4-5.0); ANION GAP 13.3 mmol/L (8-16); BILIRUBIN - TOTAL 0.64 mg/dL (0.2-1.3); CALCIUM 7.2 mg/dL (8.5-10.1); CARBON DIOXIDE 31.3 mmol/L (21.0-32.0); CREATININE - SERUM 2.9 mg/dL (0.6-1.3); MAGNESIUM - SERUM 2.7 mg/dL (1.8-2.4); PHOSPHOROUS 4.5 mg/dL (2.5-4.9); POTASSIUM - SERUM 3.6 mmol/L (3.5-5.1); PROTEIN - SERUM 5.5 g/dL (6.4-8.2)
--- NOTE | 2019-06-09 09:27 | NUR ---
Nutrition follow-up: Pt NPO for heart cath today Labs reviewed Per nursing pt with some nausea; BIPAP in place RDN following.
--- NOTE | 2019-06-09 10:00 | NUR ---
spoke with supervisor laboratory animal facility and stated still planning on doing procedure regarding creatinine. awaiting to be called to preop her
--- NOTE | 2019-06-09 11:19 | NUR ---
[id number] cell phone of
--- NOTE | 2019-06-09 12:24 | NUR ---
POWER PLANT TECHNICIAN AT BEDSIDE
--- NOTE | 2019-06-09 13:38 | NUR ---
no laborer hide house. dr arias and dr olea spoke.
--- NOTE | 2019-06-09 13:39 | NUR ---
patient not having a productive cough for the order.
--- NOTE | 2019-06-09 14:34 | NUR ---
patient more alert and orieted.
--- NOTE | 2019-06-09 18:15 | NUR ---
alexus stated she wanted to be full code
--- NOTE | 2019-06-09 18:50 | MORECARE ---
CASE MANAGEMENT DISCHARGE SUMMARY PATIENT: IMGUEL CASH UNIT: [id number] ADM DATE: 06/06/19 AGE: 68 : 52 SEX: F ROOM/BED: D.Formerly named [facility] AUTHOR: MARCIA STRICKLAND PHYSICIAN: REFERRING PHYSICIAN: TANIA ROBLES MD DATE OF SERVICE: 06/09/19 Discharge Plan Patient Name: MIGUEL CASH Facility: [facility]:[place] : 1950 Planned Disposition: Home Anticipated Discharge Date: Discharge Date: Expected LOS: Initial Reviewer: [email or web address] Initial Review Date: 06/09/2019 Generated: 06/09/19 7:49 pm Patient Name: MIGUEL CASH Page [id number] at 1850 All edits/amendments must be made on the electronic document DICTATION DATE: 06/09/191848 CYLINDER DIE MACHINE HELPER: KELSEY 06/09/191848 RPT#: [id number] DC DATE: STATUS: ADM IN [facility] [address] [place] [address] END OF REPORT
--- NOTE | 2019-06-09 18:57 | MORECARE ---
CASE MANAGEMENT DISCHARGE SUMMARY PATIENT: MIGUEL CASH UNIT: [id number] ADM DATE: 06/06/19 AGE: 68 : 52 SEX: F ROOM/BED: D.2312 AUTHOR: EM,DOC PHYSICIAN: REFERRING PHYSICIAN: TANIA ROBLES MD DATE OF SERVICE: 06/09/19 Discharge Plan Patient Name: MIGUEL CASH Facility: [facility]:[place] : 1950 Planned Disposition: Home Anticipated Discharge Date: Discharge Date: Expected LOS: Initial Reviewer: [email or web address] Initial Review Date: 06/09/2019 Generated: 06/09/19 7:56 pm Comments DCP- Discharge Planning Updated by [email or web address]: Shilpa Trujillo on 06/09/19 5:[address] Patient Name: MIGUEL CASH Admission Status: ER Accout number: [id number] Admission Date: 06-06-2019 : 1950 Admission Diagnosis: Attending: SAMY ROBLES Current LOS: 3 Anticipated DC Date: Planned Disposition: Home Primary Insurance: [employer] Discharge Planning Comments: CM met with patient to complete initial dc planning assessment. CM educated patient on the CM role and verbal consent given by patient to complete assessment. CM verified patient's address, phone number, and emergency contact phone numbers. Patient lives at home with spouse. At discharge patient plans to return home and feels that this is a safe discharge. CM discussed availability of home health, rehab services, and medical equipment. [facility] for DME no preference in case patient may need home 02. Patient may require walk test at discharge. CM will continue to follow and will assist as needed with dc plans/needs. Resident Manager: Shilpa Trujillo DCPIA - Discharge Planning Initial Assessment Updated by [email or web address]: Shilpa Trujillo on 06/09/19 6:50 pm * Is the patient Alert and Oriented? Yes * How many steps to enter\exit or inside your home? * PCP LUIS * [facility]acy [facility] * Preadmission Environment Home with Family * ADLs Independent * Other Equipment WALKER * List name and contact numbers for known caregivers / representatives who currently or will assist patient after discharge: JAY CASH - SPOUSE - [phone] BERNADETTE RUBIO - DAUGHTER- [phone] * Verbal permission to speak to the caregivers and representatives has been obtained from the patient. Yes * Community resources currently utilized None * Additional services required to return to the preadmission environment? No * Can the patient safely return to the preadmission environment? Yes * Has this patient been hospitalized within the prior 30 days at any hospital? No Last DP export: 06/09/19 5:50 pm Patient Name: MIGUEL CASH Page [phone] at 1857 All edits/amendments must be made on the electronic document DICTATION DATE: 06/09/191855 KIOSK SALES REPRESENTATIVE: KELSEY 06/09/191855 RPT#: [id number] DC DATE: STATUS: ADM IN [facility] [address] [place] [address] END OF REPORT
--- NOTE | 2019-06-09 19:00 | NUR ---
SHIFT ASSESSMENT COMPLETED. PT CARE ASSUMED. MONITORS ON AND WORKING, VITALS STABLE, SEE FLOW SHEET FOR FURTHER DETAILS. CALL LIGHT WITHIN REACH, WILL CONTINUE TO OBSERVE.
--- NOTE | 2019-06-09 21:00 | NUR ---
SPOKE WITH PTS , PASSCODE CONFIRMED AND UPDATE PROVIDED. PT SEEMS TO BE MORE COHERENT AT TIMES WITH PERIODS OF CONFUSION. MONITORS ON AND WORKING, VITALS STABLE, CALL LIGHT WITHIN REACH, WILL CONTINUE TO OBSERVE.
--- NOTE | 2019-06-09 23:00 | NUR ---
NO CHANGES, PT RESTING, MONITORS ON AND WORKING, SEE FLOW SHEET FOR FURTHER DETAILS. WILL CONTINUE TO OBSERVE.
[2019-06-10] VITALS (8 sets, daily range): BP systolic 118–176; BP diastolic 66–97
--- NOTE | 2019-06-10 01:00 | NUR ---
NO CHANGES, PT LYING IN BED RESTING, MONITORS ON AND WORKING, VITALS STABLE, CALL LIGHT WITHIN REACH, WILL CONTINUE TO OBSERVE.
--- NOTE | 2019-06-10 03:00 | NUR ---
PT TURNED AND REPOSITIONED FOR COMFORT, ORAL CARE PROVIDED, MONITORS ON AND WORKING, VITALS STABLE, SEE FLOW SHEET FOR FURTHER DETAILS. WILL CONTINUE TO OBSERVE.
--- NOTE | 2019-06-10 05:00 | NUR ---
SPOKE WITH PTS , PASSCODE PROVIDED. UPDATE PROVIDED, WILL CONTINUE TO OBSERVE.
[2019-06-10 06:18] LABS: BASOPHILS 0 % (0-2); EOSINOPHILS 0 % (0-7); HEMATOCRIT 33.6 % (36.0-48.0); HEMOGLOBIN 10.4 g/dL (12-16); IMMATURE GRANULOCYTES 0.6 % (0-5); LYMPHOCYTES 7.5 % (15-50); MCH 29.7 pg (26.0-34.0); MEAN PLATELET VOLUME 9.9 fL (7.4-10.4); MONOCYTES 5.9 % (2-11); PLATELET COUNT 140 10x3/uL (130-400); RDW 15.9 % (11.5-14.5); WBC 4.8 10x3/uL (4.8-10.8)
[2019-06-10 06:49] LABS: ALBUMIN 2.6 g/dL (3.4-5.0); BILIRUBIN - TOTAL 0.8 mg/dL (0.2-1.3); CALCIUM 7.7 mg/dL (8.5-10.1); CARBON DIOXIDE 31.6 mmol/L (21.0-32.0); CREATININE - SERUM 2.7 mg/dL (0.6-1.3); MAGNESIUM - SERUM 2.7 mg/dL (1.8-2.4); POTASSIUM - SERUM 3.6 mmol/L (3.5-5.1); PROTEIN - SERUM 5.7 g/dL (6.4-8.2); VANCOMYCIN - RANDOM 20.7 ug/mL (10.0-20.0)
--- NOTE | 2019-06-10 17:57 | NUR ---
PT ARRIVED TO FLOOR VIA. TRANSFERRED INTO BED. PT IS ALERT AND ORIENTED. O2 AT 5L VIA NC. BED ALARM TURNED ON. BED LOW. CL IN REACH. BIPAP BROUGHT FROM ICU AND VESNA RN STATES IT'S ONLY PRN AND PT DOES NOT WEAR IT AT NIGHT. I VERBALIZED UNDERSTANDING.
--- NOTE | 2019-06-10 20:00 | NUR ---
PT IN BED, AAO X 3, RESP EVEN AND UNLABORED, NO DISTRESS NOTED. CL IN REACH, SR UP X 2.
[2019-06-10] MEDS ORDERED: ATIVAN1 MG PO (23:15)
[2019-06-11 01:14] VITALS: BP 111/48
--- NOTE | 2019-06-11 01:39 | NUR ---
I have reviewed this patient and I concur with the Shift Assessment completed by the Licensed Practical Nurse today this shift.
[2019-06-11 05:58] LABS: ALBUMIN 2.8 g/dL (3.4-5.0); ANION GAP 14.6 mmol/L (8-16); BILIRUBIN - TOTAL 0.86 mg/dL (0.2-1.3); CALCIUM 7.9 mg/dL (8.5-10.1); CARBON DIOXIDE 27.9 mmol/L (21.0-32.0); CREATININE - SERUM 2.3 mg/dL (0.6-1.3); MAGNESIUM - SERUM 2.5 mg/dL (1.8-2.4); POTASSIUM - SERUM 3.5 mmol/L (3.5-5.1); PROTEIN - SERUM 5.6 g/dL (6.4-8.2); VANCOMYCIN - RANDOM 13.9 ug/mL (10.0-20.0)
[2019-06-11 06:51] VITALS: BP 123/77
--- NOTE | 2019-06-11 07:20 | NUR ---
COULD NOT DRAW BLOOD FROM RIGHT CHEST IP. PT REFUSING AM LAB DRAWS.
--- NOTE | 2019-06-11 11:00 | NUR ---
PT TAKEN TO DIALYSIS.
[2019-06-11 11:25] VITALS: BP 124/77
--- NOTE | 2019-06-11 11:26 | NUR ---
PT WANTING JOSE GRADY'Ernie. STATED TO PT I WILL SPEAK WITH DOCTOR ABOUT GETTING IT TAKEN OUT. PT VERBALIZED UNDERSTANDING. SPOKE WITH SHIELA HECTOR AND SHE STATES SHE WILL LOOK AND SEE. I VERBALIZED UNDRSTANDING.
--- NOTE | 2019-06-11 11:58 | NUR ---
I have reviewed this patient and I concur with the Shift Assessment completed by the Licensed Practical Nurse today this shift.
--- NOTE | 2019-06-11 13:00 | NUR ---
LEFT UPPER ARM MIDLINE AND RT CHEST IP DRESSING CHANGED USING STERILE TECHNIQUE.
[2019-06-11 14:26] VITALS: BP 120/73
[2019-06-11 18:31] VITALS: BP 136/76
[2019-06-11 20:00] VITALS: BP 126/52
--- NOTE | 2019-06-11 20:20 | NUR ---
OT NOTE: PT COMPLETED SUPINE TO SIT AT EOB WITH SBA. PT COMPLETED SIT TO STAND WITH SBA/CGA. PT COMPLETED ADL MOB WITH RW REQUIRED CGA FOR SHORT DISTANCE IN ROOM. PT STATES SHE GETS DIZZY AT TIMES. PT COMPLETED FACE AND HAND HYGIENE WITH SETUP. PT ARRIVED TO ROOM . [phone] THANK YOU,CLAUDE CABALLERO
[2019-06-12 01:33] VITALS: BP 122/85
[2019-06-12 04:00] VITALS: BP 122/60
[2019-06-12 05:28] LABS: BASOPHILS 0.2 % (0-2); EOSINOPHILS 0 % (0-7); HEMATOCRIT 33.5 % (36.0-48.0); HEMOGLOBIN 10.3 g/dL (12-16); IMMATURE GRANULOCYTES 2.2 % (0-5); LYMPHOCYTES 9.5 % (15-50); MCH 29.4 pg (26.0-34.0); MCHC 30.7 g/dL (31.0-37.0); MCV 95.7 fL (80.0-100.0); MEAN PLATELET VOLUME 9.8 fL (7.4-10.4); MONOCYTES 7.8 % (2-11); NEUTROPHILS 80.3 % (40-80); RDW 15.5 % (11.5-14.5); WBC 4.6 10x3/uL (4.8-10.8)
[2019-06-12 05:29] LABS: PLATELET COUNT 179 10x3/uL (130-400)
[2019-06-12 05:59] LABS: ALBUMIN 2.6 g/dL (3.4-5.0); ANION GAP 12.5 mmol/L (8-16); BILIRUBIN - TOTAL 0.95 mg/dL (0.2-1.3); POTASSIUM - SERUM 3.5 mmol/L (3.5-5.1); PROTEIN - SERUM 5.8 g/dL (6.4-8.2)
--- NOTE | 2019-06-12 07:25 | NUR ---
ASSESSMENT DONE. DENIES NEEDS
[2019-06-12 09:35] VITALS: BP 124/64
[2019-06-12 13:42] VITALS: BP 127/73
--- NOTE | 2019-06-12 17:11 | NUR ---
OT NOTE: PT COMPLETED SIMPLE FACE AND HAND HYGIENE TASKS WITH SET UP. PT IS WEAK AND FATIGUED . PT EXHIBITED DECREASED AX TOLERANCE. [phone] THANK YOU,CLAUDE CABALLERO
--- NOTE | 2019-06-12 17:21 | NUR ---
OT NOTE: MIN ASSIST WITH BED MOB; GOOD BALANCE WITH EOB SITTING; UE AROM EXS TO IMPROVE STRENGTH AND ENDURANCE. SET UP FOR SIMPLE GROOMING TASKS SUSAN ROTH, OTR/L [phone]
[2019-06-12 18:32] VITALS: BP 118/71
--- NOTE | 2019-06-12 19:45 | NUR ---
REPORT RECIEVED AND ROUNDING COMPLETE. PATIENT LATYING IN BED IN LOW FOWLERS POSITION. CYN IS UPSET BECAUSE SHE DOES NOT WHEN SHE IS GOING TO HAVE HER HEART CATH, SHE STATES SHE NEEDS TO GO HOME AND TAKE CARE OF HER , STATES SHE DOES NOT WANT TO BED SUCK HERE IF THE VIRUS COMES. CYN IS WEARING NASAL CANNULA WITH O2 AT 2L. CYN HAS A LEFT MIDLINE WITH FLUIDS RUNNING AT THIS TIME. PATIENT STATES SHE HAS NO NEEDS. CALL LIGHT WITHIN REACH AND BED IN LOWEST LOCKED POSITION.
[2019-06-12 20:00] VITALS: BP 129/84
[2019-06-13] VITALS: BP 117/67
--- NOTE | 2019-06-13 03:05 | NUR ---
I have reviewed this patient and I concur with the Shift Assessment completed by the Licensed Practical Nurse today this shift.
[2019-06-13 04:00] VITALS: BP 108/64
[2019-06-13 06:36] LABS: BASOPHILS 0.2 % (0-2); EOSINOPHILS 2.1 % (0-7); HEMATOCRIT 34.2 % (36.0-48.0); HEMOGLOBIN 10.5 g/dL (12-16); IMMATURE GRANULOCYTES 5.2 % (0-5); MCH 29.8 pg (26.0-34.0); MCHC 30.7 g/dL (31.0-37.0); MCV 97.2 fL (80.0-100.0); MEAN PLATELET VOLUME 9.7 fL (7.4-10.4); MONOCYTES 10.3 % (2-11); NEUTROPHILS 67.2 % (40-80); RBC 3.52 10x6/uL (4.00-5.40); RDW 15.5 % (11.5-14.5)
[2019-06-13 06:42] LABS: PLATELET COUNT 235 10x3/uL (130-400); WBC 5.8 10x3/uL (4.8-10.8)
[2019-06-13 07:02] LABS: CALCIUM 7.6 mg/dL (8.5-10.1); CARBON DIOXIDE 29.3 mmol/L (21.0-32.0); CREATININE - SERUM 1.8 mg/dL (0.6-1.3); POTASSIUM - SERUM 3.3 mmol/L (3.5-5.1)
--- NOTE | 2019-06-13 12:37 | NUR ---
Nutrition Follow-up: Pt not eating well. C/o altered taste and states she can't eat without salt. Ok to liberalize diet per Dr. Patel. Diet: Renal PO intake: 25-50% Wt: 160# (06/11); 138.8# (06/07 - bedscale) Last BM: 06/11 Labs noted: K+ 3.3, Ca 7.6 Meds noted: KCl, Protonix -Liberalize to regular diet. -Monitor wt; noted daily wts ordered. -RD following.
[2019-06-13 12:54] VITALS: BP 129/74
--- NOTE | 2019-06-13 18:56 | NUR ---
OT NOTE: PT COMPLETED SUPINE TO SIT WITH CGA. PT COMPLETED ADL MOB WITH RW REQUIRED CGA. PT EXHIBITED DECREASED AX TOLERANCE COMPARED TO PREVIOUS DAY, [phone] THANK YOU,CLAUDE CABALLERO
--- NOTE | 2019-06-13 19:10 | NUR ---
BEDSIDE REPORT RECEIVED FROM DAY SHIFT, PT CARE ASSUMED. INTRODUCED SELF AND WROTE NAME ON BOARD. PT LYING IN BED, WATCHING TV, AAOX4. DENIES ANY NEEDS AT THIS TIME. BED IN LOWEST POSITION, SR X3, CALL LIGHT WITHIN REACH. WILL CONTINUE TO MONITOR.
[2019-06-13 20:30] VITALS: BP 136/88
[2019-06-14 00:30] VITALS: BP 120/74
[2019-06-14 04:30] VITALS: BP 135/72
[2019-06-14 06:10] LABS: BASOPHILS 0.2 % (0-2); EOSINOPHILS 0.8 % (0-7); HEMATOCRIT 33.3 % (36.0-48.0); HEMOGLOBIN 10.4 g/dL (12-16); IMMATURE GRANULOCYTES 6.8 % (0-5); LYMPHOCYTES 12.7 % (15-50); MCHC 31.2 g/dL (31.0-37.0); MEAN PLATELET VOLUME 9.5 fL (7.4-10.4); MONOCYTES 7.4 % (2-11); NEUTROPHILS 72.1 % (40-80); RBC 3.47 10x6/uL (4.00-5.40); RDW 15.3 % (11.5-14.5); WBC 6.3 10x3/uL (4.8-10.8)
[2019-06-14 06:24] LABS: ANION GAP 11.8 mmol/L (8-16); CALCIUM 8.3 mg/dL (8.5-10.1); CARBON DIOXIDE 27.9 mmol/L (21.0-32.0); CREATININE - SERUM 1.5 mg/dL (0.6-1.3); POTASSIUM - SERUM 3.7 mmol/L (3.5-5.1)
[2019-06-14 06:31] LABS: PLATELET COUNT 287 10x3/uL (130-400)
--- NOTE | 2019-06-14 07:42 | NUR ---
RECIEVED REPORT. PATIENT IS ALERT AND AWAKE. DENIES ANY NEEDS AT THIS TIME.
[2019-06-14 08:58] VITALS: BP 140/73
[2019-06-14 12:20] VITALS: BP 128/89
[2019-06-14 17:56] VITALS: BP 107/86
--- NOTE | 2019-06-14 19:30 | NUR ---
RECEIVED REPORT, WILL ASSUME CARE OF PT, ASKING FOR SLEEPING MEDS, EXPLAIN WE USALLY GIVE AROUND 2100, THEN ASK FOR COFFEE, WILL PROVIDE, BED IS LOW, SRX2, CALL LIGHT IN REACH, WILL CONTINUE PLAN OF CARE
[2019-06-14 20:00] VITALS: BP 136/96
--- NOTE | 2019-06-14 20:00 | NUR ---
REVIEWED MEDS, PT DOESNT HAVE SLEEP MEDS, SHE HAS ATIVAN FOR ANXIETY, SHE SAID YES THATS WHAT I WANT, EXPLAINED SHE CAN HAVE BID PRN, BUT NEEDS TO ASK FOR ANXIETY MEDS, I PROVIDED ATIVAN ORDERED, BED IS LOW, SRX2, CALL LIGHT IN REACH, WILL CONTINUE PLAN OF CARE
[2019-06-15] VITALS: BP 133/81
[2019-06-15 04:00] VITALS: BP 126/67
--- NOTE | 2019-06-15 05:44 | NUR ---
I have reviewed this patient and I concur with the Shift Assessment completed by the Licensed Practical Nurse today this shift.
[2019-06-15 06:10] LABS: BASOPHILS 0.3 % (0-2); EOSINOPHILS 0.8 % (0-7); HEMATOCRIT 32.9 % (36.0-48.0); HEMOGLOBIN 10.3 g/dL (12-16); IMMATURE GRANULOCYTES 7.3 % (0-5); LYMPHOCYTES 12.9 % (15-50); MCH 30.1 pg (26.0-34.0); MCHC 31.3 g/dL (31.0-37.0); MCV 96.2 fL (80.0-100.0); MEAN PLATELET VOLUME 9.2 fL (7.4-10.4); MONOCYTES 9.5 % (2-11); NEUTROPHILS 69.2 % (40-80); RBC 3.42 10x6/uL (4.00-5.40); RDW 15.5 % (11.5-14.5); WBC 7.3 10x3/uL (4.8-10.8)
[2019-06-15 06:30] LABS: ANION GAP 13.2 mmol/L (8-16); CALCIUM 8.2 mg/dL (8.5-10.1); CARBON DIOXIDE 24.3 mmol/L (21.0-32.0); CREATININE - SERUM 1.6 mg/dL (0.6-1.3); POTASSIUM - SERUM 3.5 mmol/L (3.5-5.1)
[2019-06-15 06:37] LABS: PLATELET COUNT 356 10x3/uL (130-400)
--- NOTE | 2019-06-15 07:53 | NUR ---
RECIEVED REPORT. PATIENT IS ALERT AND AWAKE AND RESTING ON HER BACK IN BED AT THIS TIME. SHE DENIES ANY NEEDS AT THIS TIME.
[2019-06-15 10:00] VITALS: BP 124/68
[2019-06-15 12:20] VITALS: BP 124/88
[2019-06-15 15:05] LABS: BASOPHILS 0.2 % (0-2); EOSINOPHILS 1.2 % (0-7); HEMATOCRIT 34.7 % (36.0-48.0); HEMOGLOBIN 10.8 g/dL (12-16); IMMATURE GRANULOCYTES 9.5 % (0-5); LYMPHOCYTES 9.7 % (15-50); MCHC 31.1 g/dL (31.0-37.0); MCV 96.4 fL (80.0-100.0); MEAN PLATELET VOLUME 8.9 fL (7.4-10.4); MONOCYTES 6.5 % (2-11); NEUTROPHILS 72.9 % (40-80); PLATELET COUNT 377 10x3/uL (130-400); RDW 15.4 % (11.5-14.5); WBC 8.3 10x3/uL (4.8-10.8)
[2019-06-15 15:27] LABS: ANION GAP 15.1 mmol/L (8-16); CALCIUM 8.3 mg/dL (8.5-10.1); CARBON DIOXIDE 23.7 mmol/L (21.0-32.0); CHOL - HDL RATIO 2.5 ratio (2.3-4.1); CREATININE - SERUM 1.6 mg/dL (0.6-1.3); LDL-HDL RATIO 1.1 ratio (1.5-3.5); POTASSIUM - SERUM 3.8 mmol/L (3.5-5.1)
[2019-06-15 16:37] VITALS: BP 118/73
[2019-06-15 20:00] VITALS: BP 131/79
--- NOTE | 2019-06-15 22:13 | NUR ---
INITIAL ROUNDS COMPLETED AT 1910 HRS. PT DENIED ANY DISCOMFORT EXCEPT WAS TIRED. PT DEMANDING HER NIGHT MEDS AT 1950 HRS. INFORMED PT WILL ASSESS FIRST THEN GET MEDS. PT THEN BECAME VERY ANGRY YELLING" IT'S ALMOST 8PM FOR GOD'S SAKE! THIS IS UNACCEPTABLE!". VSS. PACED RHTYM PER CM HR 87. ALERT AND ORIENTED TO PERSON, PLACE AND TIME. BLACKWELL. R CHEST INFUSAPORT WTIH 1/2NS WITH 20 MEQ KCL AT 30CC/HR. IV PATENT. LUNGS DIMINISHED IN BASES BILAT. COLORING NI BUT O2 SAT 97% ON ROOM AIR. SORE NOTED TO BRIDGE OF NOSE. PM MEDS INCLUDING ATIVAN GIVEN SHORTLY AFTER ASSESSMENT. ASSISTED PT INTO A MORE COMFORTABLE POSITION AT 2140 HRS. PT CURRENTLY RESTING WITH EYES CLOSED. RESP EVEN AND REGULAR. SR UP X2,CALL LIGHT WITHIN REACH.
--- NOTE | 2019-06-16 00:06 | NUR ---
PT AWAKE; DENIES ANY DISCOMFORT. CALL LIGHT WITHIN REACH.
[2019-06-16 00:30] VITALS: BP 121/78
--- NOTE | 2019-06-16 03:31 | NUR ---
PT RESTING WITH EYES CLOSED. RESP EVEN AND REGULAR. SR UP X2, CALL LIGHT WITHIN REACH.
[2019-06-16 04:00] VITALS: BP 132/75
--- NOTE | 2019-06-16 05:44 | NUR ---
PACED RHYTHM PER CM DURING SHIFT. PT STATED SHE RESTED SOME DURING SHIFT. HIBICLENS BATH DONE, BED LINENS CAHNGED. PT'S GROIN CLIPPED PER ORDERS. NEEDS MET; WILL CONTINUE TO MONITOR.
[2019-06-16 06:42] LABS: BASOPHILS 0.3 % (0-2); EOSINOPHILS 1.5 % (0-7); HEMATOCRIT 35.1 % (36.0-48.0); HEMOGLOBIN 10.9 g/dL (12-16); IMMATURE GRANULOCYTES 9.2 % (0-5); LYMPHOCYTES 17.8 % (15-50); MCHC 31.1 g/dL (31.0-37.0); MCV 96.7 fL (80.0-100.0); MEAN PLATELET VOLUME 9.4 fL (7.4-10.4); MONOCYTES 7.4 % (2-11); NEUTROPHILS 63.8 % (40-80); PLATELET COUNT 440 10x3/uL (130-400); RBC 3.63 10x6/uL (4.00-5.40); RDW 15.6 % (11.5-14.5); WBC 7.9 10x3/uL (4.8-10.8)
[2019-06-16 07:04] LABS: ANION GAP 14.1 mmol/L (8-16); CALCIUM 7.9 mg/dL (8.5-10.1); CARBON DIOXIDE 22.8 mmol/L (21.0-32.0); CREATININE - SERUM 1.5 mg/dL (0.6-1.3); POTASSIUM - SERUM 3.9 mmol/L (3.5-5.1)
--- NOTE | 2019-06-16 08:29 | NUR ---
TAKEN TO REVENUE ACCOUNTING MANAGER VIA BED.
--- NOTE | 2019-06-16 09:40 | NUR ---
RETURN TO ROOM VIA BED. ALERT AND ORIENTED X4. SPOUSE AT BEDSIDE. RT GROIN DRESSING CLEAN DRY INTACT. FREE FROM HEMATOMA. FREE FROM BLEEDING. PULSE PALPABLE BILATERALLY. BP-124/73, HR-60, O2-98% 4L NC. DENIES ANY NEEDS AT THIS TIME. ENCOURAGE TO REMAIN FLAT FOR NEXT 2 HOURS DUE TO INCREASE RISK FOR BLEEDING. CONTINUE PLAN OF CARE AND SAFETY PRECAUTIONS.
--- NOTE | 2019-06-16 12:00 | NUR ---
CALL REGARDING DISCHARGE PER PATIENT REQUEST.
--- NOTE | 2019-06-16 13:44 | NUR ---
ALERT AND ORIENTED X4. SITTING UP IN BED. DEMANDS MIDLINE AND IP TO BE REMOVED. AMA PAPERS SIGNED. PATIENT STATES, "I'M NOT WAITING ANY LONGER. I CAN NOT STAY HERE WITH THIS VIRUS GOING AROUND. I'M LEAVING. I DON'T CARE ABOUT INSURANCE NOT PAYING, THEY STILL WON'T GET A DIME." DC LT ARM MIDLINE TIP INTACT. DC RT CHEST IP TIP INTACT. LEAVES ROOM ACCOMPANIED BY SPOUSE.
--- NOTE | 2019-06-16 14:10 | OP ---
PATIENT NAME: MIGUEL CASH MEDICAL RECORD: [id number] :54 LOCATION:D.M2 D.2130 ADMISSION DATE:06/06/19 SURGEON: ETHEL BELL MD DATE OF OPERATION: 06/16/2019 PROCEDURE: Left heart catheterization, selective coronary angiography, right femoral artery approach. CATHETERS: A 5-Telugu sheath, 5/4 left and right Jessi, 5/4 pig. The procedure was well tolerated. The patient returned to the jiang, sheath removed. ExoSeal device placed. FINDINGS: Left ventriculography in 30-degree GUNDERSON view shows global hypokinesis. Overall, function mildly reduced at 40%. CORONARY ANATOMY: LEFT MAIN: Left main is free of disease. LAD: Free of disease in the diagonal system. CIRCUMFLEX: Free of disease in the marginal system. RIGHT CORONARY ARTERY: Dominant artery, gives rise to PDA, free of disease. IMPRESSION: Nonischemic cardiomyopathy maybe related to underlying current illness. I will add ARB to underlying medical regime. Repeat echo in 3 months. TRANSINT:[id number] Voice Confirmation ID: [id number] DOCUMENT ID: [id number] ETHEL BELL MD at 1410 CC: [id number] DICTATION DATE: 06/16/19918 WASHER MEAT: 06/16/19 1313 ADM IN [facility] [place] [address] [place] [address]
--- NOTE | 2019-06-17 09:41 | MORECARE ---
CASE MANAGEMENT DISCHARGE SUMMARY PATIENT: MIGUEL CASH UNIT: [id number] ADM DATE: 06/06/19 AGE: 68 : 52 SEX: F ROOM/BED: D.3016 AUTHOR: EM,DOC PHYSICIAN: REFERRING PHYSICIAN: TANIA ROBLES MD DATE OF SERVICE: 06/17/19 Discharge Plan Patient Name: MIGUEL CASH Facility: [facility]:[place] : 1950 Planned Disposition: Left Against Medical Advice Anticipated Discharge Date: 06/16/19 Discharge Date: 06/16/2019 Expected LOS: 10 Initial Reviewer: [email or web address] Initial Review Date: 06/09/2019 Generated: 06/17/19 10:40 am DCP- Discharge Planning Updated by [email or web address]: Shilpa Trujillo on 06/09/19 5:[address] Patient Name: MIGUEL CASH Admission Status: ER Accout number: [id number] Admission Date: 06-06-2019 : 1950 Admission Diagnosis: Attending: SAMY ROLBES Current LOS: 3 Anticipated DC Date: Planned Disposition: Home Primary Insurance: [facility] [employer] Discharge Planning Comments: CM met with patient to complete initial dc planning assessment. CM educated patient on the CM role and verbal consent given by patient to complete assessment. CM verified patient's address, phone number, and emergency contact phone numbers. Patient lives at home with spouse. At discharge patient plans to return home and feels that this is a safe discharge. CM discussed availability of home health, rehab services, and medical equipment. [facility] for DME no preference in case patient may need home 02. Patient may require walk test at discharge. CM will continue to follow and will assist as needed with dc plans/needs. Manager Organizational: Shilpa Trujillo DCPIA - Discharge Planning Initial Assessment Updated by [email or web address]: Shilpa Trujillo on 06/09/19 6:50 pm * Is the patient Alert and Oriented? Yes * How many steps to enter\exit or inside your home? * PCP [facility] * [facility]acy [facility] * Preadmission Environment Home with Family * ADLs Independent * Other Equipment WALKER * List name and contact numbers for known caregivers / representatives who currently or will assist patient after discharge: JAY CASH - SPOUSE - [phone] BERNADETTE RUBIO - DAUGHTER- [phone] * Verbal permission to speak to the caregivers and representatives has been obtained from the patient. Yes * Community resources currently utilized None * Additional services required to return to the preadmission environment? No * Can the patient safely return to the preadmission environment? Yes * Has this patient been hospitalized within the prior 30 days at any hospital? No Last DP export: 06/09/19 5:57 pm Patient Name: MIGUEL CASH Page 88515 at 0941 All edits/amendments must be made on the electronic document DICTATION DATE: 06/17/19939 GLUER MACHINE OPERATOR: KELSEY 06/17/19939 RPT#: [id number] DC DATE:06/16/19 STATUS: DIS IN [facility] [address] [place] [address] END OF REPORT
== END 2019-06-16 14:34 | disposition left against medical advice (07) | DRG 280 ==
LOC: D.ER 05:51 → D.M2 07:49 → D.ICU 07:49 → D.M2 06-10 17:53
PROVIDERS: Family Medicine; Internal Medicine Interventional Cardiology; Internal Medicine Nephrology; ADMIT Emergency Medicine; ATTEND Emergency Medicine
PROC: 05HY33Z Insertion of Infusion Device into Upper Vein, Percutaneous Approach (ICD-10-PCS; principal; 2019-06-06)
PROC: B2111ZZ Fluoroscopy of Multiple Coronary Arteries using Low Osmolar Contrast (ICD-10-PCS; 2019-06-16)
PROC: B2151ZZ Fluoroscopy of Left Heart using Low Osmolar Contrast (ICD-10-PCS; 2019-06-16)
PROC: 4A023N7 Measurement of Cardiac Sampling and Pressure, Left Heart, Percutaneous Approach (ICD-10-PCS; 2019-06-16)
DX: I21.4 Non-ST elevation (NSTEMI) myocardial infarction (principal); J96.21 Acute and chronic respiratory failure with hypoxia; J18.9 Pneumonia, unspecified organism; J96.22 Acute and chronic respiratory failure with hypercapnia; I50.31 Acute diastolic (congestive) heart failure; N17.0 Acute kidney failure with tubular necrosis; C25.9 Malignant neoplasm of pancreas, unspecified; Z68.1 Body mass index [BMI] 19.9 or less, adult; E87.1 Hypo-osmolality and hyponatremia; I48.20 Chronic atrial fibrillation, unspecified; I42.8 Other cardiomyopathies; R40.2133 Coma scale, eyes open, to sound, at hospital admission; R40.2353 Coma scale, best motor response, localizes pain, at hospital admission; R40.2243 Coma scale, best verbal response, confused conversation, at hospital admission; J45.909 Unspecified asthma, uncomplicated; I10 Essential (primary) hypertension; I48.91 Unspecified atrial fibrillation; E87.6 Hypokalemia; R94.31 Abnormal electrocardiogram [ECG] [EKG]; Z95.0 Presence of cardiac pacemaker; I11.0 Hypertensive heart disease with heart failure; F32.9 Major depressive disorder, single episode, unspecified; M19.90 Unspecified osteoarthritis, unspecified site